=== PATIENT | female | born 1940 | race Caucasian/White ===

== ENCOUNTER → 2017-02-01 07:26 | Outpatient (CLI) | payer MEDICARE | END | disposition home or self-care (01) | LOC: D.RT 07:26 | DX: R06.02 Shortness of breath (principal) ==

== ENCOUNTER 2017-02-03 16:45 | Emergency (ER) | payer MEDICARE ==
[2017-02-03 20:20] LABS: BASOPHILS 0.5 % (0-2); EOSINOPHILS 1.7 % (0-7); HEMOGLOBIN 10.9 g/dL (12-16); IMMATURE GRANULOCYTES 0.2 % (0-5); LYMPHOCYTES 30.4 % (15-50); MCH 20.4 pg (26.0-34.0); MCHC 31.1 g/dL (31.0-37.0); MCV 65.4 fL (80.0-100.0); NEUTROPHILS 61.2 % (40-80); PLATELET COUNT 229 10x3/uL (130-400); RBC 5.35 10x6/uL (4.00-5.40); RDW 16.1 % (11.5-14.5); WBC 9.2 10x3/uL (4.8-10.8)
[2017-02-03 20:33] LABS: ALKALINE PHOSPHATASE 53 U/L (46-116); ALT (SGPT) 18 U/L (10-68); BILIRUBIN - TOTAL 0.42 mg/dL (0.2-1.3); CALC OSMOLALITY 281 mosm/kg (275-300); CALCIUM 9.2 mg/dL (8.5-10.1); CARBON DIOXIDE 28.3 mmol/L (21.0-32.0); CHLORIDE - SERUM 105 mmol/L (98-107); CREATININE - SERUM 1.4 mg/dL (0.6-1.3); GLUCOSE 102 mg/dL (74-106); POTASSIUM - SERUM 4.5 mmol/L (3.5-5.1); PROTEIN - SERUM 7.4 g/dL (6.4-8.2); SODIUM 140 mmol/L (136-145); UREA NITROGEN 22 mg/dL (7-18); eGFR NON AFRICAN AMERICAN 38 mL/min (90-120)
[2017-02-03 20:44] LABS: CKMB 0.6 U/L (0.0-3.6); CREATINE KINASE 28 UL (21-215)
[2017-02-03 20:45] LABS: TROPONIN-I < 0.017 ng/mL (0.000-0.060)
== END 2017-02-03 22:11 | disposition home or self-care (01) ==
LOC: D.ER 16:45
PROVIDERS: Emergency Medicine
DX: M19.90 Unspecified osteoarthritis, unspecified site (principal); C50.912 Malignant neoplasm of unspecified site of left female breast; I10 Essential (primary) hypertension; F32.9 Major depressive disorder, single episode, unspecified; E03.9 Hypothyroidism, unspecified; K21.9 Gastro-esophageal reflux disease without esophagitis

== ENCOUNTER → 2019-11-01 09:00 | Outpatient (CLI) | payer MEDICARE | END | disposition home or self-care (01) | LOC: D.HCCARDIO 09:00 → D.HCCECHO 09:30 → D.HCCARDIO 09:30 | PROVIDERS: ATTEND Internal Medicine Cardiovascular Disease | DX: I25.10 Atherosclerotic heart disease of native coronary artery without angina pectoris (principal); R06.09 Other forms of dyspnea ==